=== PATIENT | female | born 1965 | race Caucasian/White ===

== ENCOUNTER 2016-09-14 16:12 | Inpatient (IN) | payer OTHER ==
[2016-09-14] MEDS ORDERED: SODIUM CHLORIDE 0.9% 1,000 ML IV STA (16:21)
[2016-09-14] MEDS ORDERED: KETOROLAC 30 MG/ML 1 ML VIAL IVP STA (16:21)
[2016-09-14] MEDS ORDERED: ONDANSETRON 4 MG/2 ML VIAL IVP STA (16:21)
[2016-09-14] MEDS ORDERED: ACETAMINOPHEN TAB 500 MG TAB PO STA (16:22)
[2016-09-14] MEDS ORDERED: HYDROmorphone 1 MG/ML 1 ML SYRINGE IVP STA ×2 (16:24→19:56)
[2016-09-14] MEDS ORDERED: LEVOFLOXACIN 750MG-D5W PMX 750 MG in DEXTROSE/WATER 1 150ML.BAG IVPB STA (16:24)
--- NOTE | 2016-09-14 16:31 | ED ---
Abdominal Pain HPI - General Chief Complaint: Abdominal Pain Stated Complaint: Kidney Stone Time Seen by Provider: 09/14/16 16:21 Source: patient, family, RN notes reviewed, old records reviewed Mode of arrival: ambulatory Limitations: no limitations - History of Present Illness Initial Comments: This is a 51-year-old female presenting to the emergency department from her primary care office with chief complaint of left flank pain. Patient reports that she has a history of kidney stones. She reports that this pain has been going on for the past few months but became much worse over the past 3 days. She reports that it is not stopping. She states she's had a low-grade fever. She is not had any vomiting. She states that she feels nauseated. She reports that the pain radiates her left flank to her left left abdomen. She states her pains a 10 out of 10 and is writhing around the room. Patient states she is never seen a urologist here. Had no recent CAT scans her antibiotics. Patient denies any blood in her urine. She does report that her urine has been cloudy. Patient reports that she has not taken anything for pain.Patient denies any recent shortness of breath, chest pain, vomiting, numbness or tingling, dysuria or hematuria, constipation or diarrhea, headaches or visual changes, or any other current symptoms - Related Data Home Medications Medication Instructions Recorded Confirmed Atorvastatin [Lipitor] 20 mg PO HS 09/14/16 09/14/16 Cyclobenzaprine [Flexeril] 10 mg PO HS 09/14/16 09/14/16 Enalapril [Vasotec] 2.5 mg PO DAILY 09/14/16 09/14/16 Gabapentin [Neurontin] 100 mg PO HS 09/14/16 09/14/16 HYDROcodone/APAP 10-325MG [[place] 1 tab PO HS PRN 09/14/16 09/14/16 10-325] Magnesium Malate 2,500 mg PO DAILY 09/14/16 09/14/16 SUMAtriptan SUCCINATE [Imitrex] 25 mg PO BID PRN 09/14/16 09/14/16 Venlafaxine HCl [Effexor XR] 75 mg PO DAILY 09/14/16 09/14/16 metFORMIN HCL 1,000 mg PO BID 09/14/16 09/14/16 predniSONE 5 mg PO DAILY PRN 09/14/16 09/14/16 traMADol HCL [Ultram] 50 mg PO TID PRN 09/14/16 09/14/16 Allergies Allergy/AdvReac Type Severity Reaction Status Date / Time adalimumab [From Humira] Allergy Swelling Verified 09/14/16 16:26 Review of Systems ROS Statement: Those systems with pertinent positive or pertinent negative responses have been documented in the HPI. ROS Other: All systems not noted in ROS Statement are negative. Past Medical History Past Medical History: Diabetes Mellitus Additional Past Medical History / Comment(s): kidney stones History of Any Multi-Drug Resistant Organisms: None Reported Past Surgical History: Section, Hysterectomy Additional Past Surgical History / Comment(s): knee Past Psychological History: Depression Smoking Status: Current every day smoker Past Alcohol Use History: None Reported Past Drug Use History: None Reported General Exam - General Exam Comments Initial Comments: This is an ill-appearing 51-year-old female. No distress. Limitations: no limitations General appearance: alert, in no apparent distress Head exam: Present: atraumatic, normocephalic, normal inspection Eye exam: Present: normal appearance, PERRL, EOMI. Absent: scleral icterus, conjunctival injection, periorbital swelling ENT exam: Present: normal exam, mucous membranes moist Neck exam: Present: normal inspection. Absent: tenderness, meningismus, lymphadenopathy Respiratory exam: Present: normal lung sounds bilaterally. Absent: respiratory distress, wheezes, rales, rhonchi, stridor Cardiovascular Exam: Present: regular rate, normal rhythm, normal heart sounds. Absent: systolic murmur, diastolic murmur, rubs, gallop, clicks GI/Abdominal exam: Present: soft, tenderness (Left upper quadrant tenderness.), normal bowel sounds. Absent: distended, guarding, rebound, rigid Extremities exam: Present: normal inspection, full ROM, normal capillary refill. Absent: tenderness, pedal edema, joint swelling, calf tenderness Back exam: Present: normal inspection, CVA tenderness (L) Neurological exam: Present: alert, oriented X3, CN II-XII intact Psychiatric exam: Present: normal affect, normal mood Skin exam: Present: warm, dry, intact, normal color. Absent: rash Course Vital Signs 09/14/16 09/14/16 16:16 18:19 Temperature 102.5 F H 100.1 F H Pulse Rate 131 H 112 H Respiratory 18 18 Rate Blood Pressure 127/82 94/52 O2 Sat by Pulse 99 93 L Oximetry - Reevaluation(s) Reevaluation #1: 09/14/16 17:31 Patient is reevaluated at this time and is resting comfortably. Discussed with patient that we'll be doing a CAT scan. Patient agrees. Medical Decision Making - Medical Decision Making This is a pleasant 51-year-old female chief complaint of 2 days of left flank pain. She also complains of abdominal distention 9 be able to have a bowel movement. She reports that she was diagnosed with diabetes.longer was trying to change her diet. Patient presents the emergency department with a fever for 102. Tachycardia 131 bpm. Patient is writhing around the room on initial examination. Patient given IV fluids and lab work obtained. Patient has an elevated white count of 23,000. Urinalysis is positive for urinary tract infection, with significant amount of white blood cells. is been started on IV Levaquin. Lactic acid is negative at 1.3. Blood cultures also obtained. Patient CT abdomen and pelvis does reveal a left ureteral stone measuring 7 mm. Patient states that she has not seen a urologist in this area. Discussed case with Dr. Keen. Patient will be admitted for pyelonephritis and sepsis, with a left ureteral stone. At this time we contacted urology. Dr. Mullen will place a stent to remove the stone at 9:30 this evening. Patient will be admitted to unit on IV fluids. - Lab Data Result diagrams: 09/14/16 16:54 09/14/16 16:54 Lab Results 09/14/16 09/14/16 09/14/16 Range/Units 16:54 16:54 16:54 WBC 22.3 H (3.8-10.6) k/uL RBC 5.15 (3.80-5.40) m/uL Hgb 14.8 (11.4-16.0) gm/dL Hct 45.6 (34.0-46.0) % MCV 88.5 (80.0-100.0) fL MCH 28.8 (25.0-35.0) pg MCHC 32.5 (31.0-37.0) g/dL RDW 13.4 (11.5-15.5) % Plt Count 261 (150-450) k/uL Neutrophils % 83 % Lymphocytes % 10 % Monocytes % 5 % Eosinophils % 0 % Basophils % 0 % Neutrophils # 18.6 H (1.3-7.7) k/uL Lymphocytes # 2.3 (1.0-4.8) k/uL Monocytes # 1.0 (0-1.0) k/uL Eosinophils # 0.0 (0-0.7) k/uL Basophils # 0.1 (0-0.2) k/uL Sodium 137 (137-145) mmol/L Potassium 4.8 (3.5-5.1) mmol/L Chloride 103 (98-107) mmol/L Carbon Dioxide 23 (22-30) mmol/L Anion Gap 11 mmol/L BUN 15 (7-17) mg/dL Creatinine 0.78 (0.52-1.04) mg/dL Est GFR (MDRD) Af Amer >60 (>60 ml/min/1.73 sqM) Est GFR (MDRD) Non-Af >60 (>60 ml/min/1.73 sqM) Glucose 121 H (74-99) mg/dL Plasma Lactic Acid [place]mond 1.8 (0.7-2.0) mmol/L Calcium 10.2 (8.4-10.2) mg/dL Total Bilirubin 0.9 (0.2-1.3) mg/dL AST 20 (14-36) U/L ALT 26 (9-52) U/L Alkaline Phosphatase 104 (38-126) U/L Total Protein 7.8 (6.3-8.2) g/dL Albumin 4.4 (3.5-5.0) g/dL Amylase 32 (30-110) U/L Lipase 73 (23-300) U/L Urine Color Urine Appearance (Clear) Urine pH (5.0-8.0) Ur Specific [place] (1.001-1.035) Urine Protein (Negative) Urine Glucose (UA) (Negative) Urine Ketones (Negative) Urine Blood (Negative) Urine Nitrite (Negative) Urine Bilirubin (Negative) Urine Urobilinogen (<2.0) mg/dL Ur Leukocyte Esterase (Negative) Urine RBC (0-5) /hpf Urine WBC (0-5) /hpf Ur Squamous Epith Cells (0-4) /hpf Urine Bacteria (None) /hpf Urine Mucus (None) /hpf Urine Yeast (Budding) (None) /hpf 09/14/16 Range/Units 17:10 WBC (3.8-10.6) k/uL RBC (3.80-5.40) m/uL Hgb (11.4-16.0) gm/dL Hct (34.0-46.0) % MCV (80.0-100.0) fL MCH (25.0-35.0) pg MCHC (31.0-37.0) g/dL RDW (11.5-15.5) % Plt Count (150-450) k/uL Neutrophils % % Lymphocytes % % Monocytes % % Eosinophils % % Basophils % % Neutrophils # (1.3-7.7) k/uL Lymphocytes # (1.0-4.8) k/uL Monocytes # (0-1.0) k/uL Eosinophils # (0-0.7) k/uL Basophils # (0-0.2) k/uL Sodium (137-145) mmol/L Potassium (3.5-5.1) mmol/L Chloride (98-107) mmol/L Carbon Dioxide (22-30) mmol/L Anion Gap mmol/L BUN (7-17) mg/dL Creatinine (0.52-1.04) mg/dL Est GFR (MDRD) Af Amer (>60 ml/min/1.73 sqM) Est GFR (MDRD) Non-Af (>60 ml/min/1.73 sqM) Glucose (74-99) mg/dL Plasma Lactic Acid Edmond (0.7-2.0) mmol/L Calcium (8.4-10.2) mg/dL Total Bilirubin (0.2-1.3) mg/dL AST (14-36) U/L ALT (9-52) U/L Alkaline Phosphatase (38-126) U/L Total Protein (6.3-8.2) g/dL Albumin (3.5-5.0) g/dL Amylase (30-110) U/L Lipase (23-300) U/L Urine Color Yellow Urine Appearance Cloudy H (Clear) Urine pH 6.5 (5.0-8.0) Ur Specific [place] 1.011 (1.001-1.035) Urine Protein 1+ H (Negative) Urine Glucose (UA) Trace H (Negative) Urine Ketones Negative (Negative) Urine Blood Small H (Negative) Urine Nitrite Negative (Negative) Urine Bilirubin Negative (Negative) Urine Urobilinogen <2.0 (<2.0) mg/dL Ur Leukocyte Esterase Large H (Negative) Urine RBC 4 (0-5) /hpf Urine WBC 101 H (0-5) /hpf Ur Squamous Epith Cells 1 (0-4) /hpf Urine Bacteria Occasional H (None) /hpf Urine Mucus Rare H (None) /hpf Urine Yeast (Budding) Occasional H (None) /hpf - Radiology Data Radiology results: report reviewed Abdominal x-rays shows correlate for fecal stasis. Follow-up is indicated. CT abdomen and pelvis shows mild left ureteral calculus with obstruction postop changes. After her stone measures between 6 and 7 mm. Bilateral nonobstructive nephrolithiasis. Disposition Clinical Impression: Left ureteral stone, Pyelonephritis, Sepsis Disposition: ADMITTED IP TO THIS HOSP Condition: Stable Referrals: Aruna Solorzano MD [Primary Care Provider] - 1-2 days Time of Disposition: 18:11
[2016-09-14] MEDS: SODIUM CHLORIDE 0.9% 1,000 ML IV SCH ×2 (16:57→18:56)
[2016-09-14 17:12] LABS: Basophils # (A) 0.1 k/uL (0-0.2); Basophils % (A) 0 %; CH 29.4; CHCM 33.4; Eosinophils % (A) 0 %; HCT 45.6 % (34.0-46.0); HDW 2.74; HGB 14.8 gm/dL (11.4-16.0); Luc # (Auto) 0.29; Luc % (Auto) 1; Lymphocytes # (A) 2.3 k/uL (1.0-4.8); Lymphocytes % (A) 10 %; MCH 28.8 pg (25.0-35.0); MCHC 32.5 g/dL (31.0-37.0); MCV 88.5 fL (80.0-100.0); Mean Platelet Volume 7.9; Monocytes % (A) 5 %; Neutrophils # (A) 18.6 k/uL (1.3-7.7); Neutrophils % (A) 83 %; RBC 5.15 m/uL (3.80-5.40); RDW 13.4 % (11.5-15.5); WBC 22.3 k/uL (3.8-10.6); WBC (Perox) 22.08
[2016-09-14 17:22] LABS: ALT 26 U/L (9-52); AST 20 U/L (14-36); Alkaline Phosphatase 104 U/L (38-126); Amylase 32 U/L (30-110); Anion Gap 11 mmol/L; Blood Urea Nitrogen 15 mg/dL (7-17); Calcium 10.2 mg/dL (8.4-10.2); Carbon Dioxide 23 mmol/L (22-30); Chloride 103 mmol/L (98-107); Glucose 121 mg/dL (74-99); Non-African American GFR(MDRD) >60 (>60 ml/min/1.73 sqM); Potassium 4.8 mmol/L (3.5-5.1); Sodium 137 mmol/L (137-145); Total Bilirubin 0.9 mg/dL (0.2-1.3); Total Protein 7.8 g/dL (6.3-8.2)
--- NOTE | 2016-09-14 17:22 | XR ---
Abdomen HISTORY: Left flank pain, nausea and vomiting Frontal view of the abdomen submitted on 2 images Lung bases are clear. Patient is likely rotated or there may be a scoliosis. There is no bowel obstru ction or pneumoperitoneum. Bowel gas may obscure underlying detail, there is retained fecal debris. IMPRESSION: Correlate for fecal stasis, follow-up as indicated.
[2016-09-14 17:24] LABS: Appearance,Urine Cloudy (Clear); Bacteria,Urine Occasional /hpf; Bilirubin,Urine Negative (Negative); Glucose,Urine (UA) Trace (Negative); Ketones,Urine Negative (Negative); Leukocyte Esterase,Urine Large (Negative); Mucus,Urine Rare /hpf; Nitrite,Urine Negative (Negative); PH, Urine 6.5 (5.0-8.0); Particle Count 2738; Protein,Urine 1+ (Negative); RBC,Urine 4 /hpf (0-5); Specific Gravity,Urine 1.011 (1.001-1.035); Squamous Epithelial Cell,Urine 1 /hpf (0-4); UA Billing (MACRO vs. MICRO) MICRO; Urobilinogen,Urine <2.0 mg/dL (<2.0); WBC,Urine 101 /hpf (0-5)
--- NOTE | 2016-09-14 18:15 | CT ---
EXAMINATION TYPE: CT abdomen pelvis wo con DATE OF EXAM: 09/14/2016 5:48 PM COMPARISON: Plain film same date HISTORY: Patient complains of left flank pain with a history of prior renal stones. CT DLP: 1013 mGycm Automated exposure control for dose reduction was used. TECHNIQUE: Helical acquisition of images from the lung bases through the pelvis. FINDINGS: LUNG BASES: No significant abnormality is appreciated. AORTA: No significant abnormality is appreciated. LIVER/GB: The liver shows low attenuation possibly due to fatty infiltration. Gallbladder is normal PANCREAS: Probable duodenal diverticulum present at the level of the pancreatic head, pancreas is unr emarkable SPLEEN: No significant abnormality is seen. ADRENALS: No significant abnormality is seen. KIDNEYS: Left kidney shows hydronephrosis, there is perinephric stranding. Nonobstructive renal calcu joseph at the midpole of the left kidney measures approximately 1 to 2 mm. Nonobstructive calculus at th e lower pole of the right kidney measures 2 mm. There is left hydroureter. MID ureteral calculus is p resent measuring approximately 6 to 7 mm on the left REPRODUCTIVE ORGANS: Uterus is not seen. Ovaries are unremarkable URINARY BLADDER: Contracted BOWEL: No bowel obstruction. Calcified diverticula are noted in the sigmoid and descending colon reg ion. FREE AIR: No Free Air is visible. ASCITES: None visible. PELVIC ADENOPATHY: None visualized. RETROPERITONEAL ADENOPATHY: No Retroperitoneal Adenopathy visible. OSSEOUS STRUCTURES: No significant abnormality is seen. Small anterior abdominal wall hernia in the left lower quadrant shows a wide mouth measuring 2.8 cm. IMPRESSION: MID LEFT URETERAL CALCULUS WITH OBSTRUCTION. POSTOP CHANGES AND ADDITIONAL FINDINGS ABOVE. BILATERAL NONOBSTRUCTIVE NEPHROLITHIASIS.
[2016-09-14] MEDS ORDERED: IBUPROFEN 600 MG TAB PO STA (18:26)
[2016-09-14] MEDS ORDERED: SODIUM CHLORIDE 0.9% 500 ML IV ONE (18:28)
[2016-09-14] MEDS ORDERED: BISACODYL 5 MG TABLET.DR PO PRN (18:33)
[2016-09-14] MEDS ORDERED: ONDANSETRON 4 MG/2 ML VIAL IVP PRN (18:33)
[2016-09-14] MEDS ORDERED: NALOXONE 0.4 MG/ML 1 ML VIAL IV PRN (18:33)
[2016-09-14] MEDS ORDERED: SUMAtriptan SUCCINATE 25 MG TAB PO PRN (18:49)
[2016-09-14] MEDS ORDERED: LACTATED RINGERS 1,000 ML IV ONE ×2 (21:10)
[2016-09-14] MEDS ORDERED: HYDROCORTISONE SUCCINATE 100 MG/2 ML VIAL IVP ONE (21:15)
[2016-09-14] MEDS ORDERED: PROPOFOL 10 MG/ML 20 ML VIAL IV ONE (21:48)
[2016-09-14] MEDS ORDERED: KETAMINE 10 MG/ML 20 ML VIAL ONE (21:48)
[2016-09-14] MEDS ORDERED: MIDAZOLAM 2 MG/2 ML VIAL ONE (21:48)
[2016-09-14] MEDS ORDERED: LIDOCAINE 1% INJ 10MG/ML (20 ML MDV) ONE (21:48)
[2016-09-14] MEDS ORDERED: HYDROmorphone (PF) 1 MG/ML ONE (21:48)
[2016-09-14] MEDS ORDERED: ONDANSETRON 4 MG/2 ML VIAL ONE (21:48)
--- NOTE | 2016-09-14 21:51 | P.GSHP ---
History of Present Illness H&P Date: 09/14/16 Patient is a 51-year-old female who for 2 months as had problems with left flank pain. She has a history of stones and was fired to have a left ureteral stone. Over the last 48 hours she developed high fever and chills. She presented the emergency room tonight had a temperature of over 102. She is identified and a white count of 22,000. A computed tomography scan showed a 6 mm left mid to proximal ureteral stone with hydronephrosis. Her urine was infected. Her blood pressure is low at 98. With this in mind she has a urinary tract infection with sepsis, pyonephrosis. She is admitted to the hospital for IV fluids and IV antibiotics and [facility] - Review of Systems Comment: Noncontributory Past Medical History Past Medical History: Diabetes Mellitus Additional Past Medical History / Comment(s): kidney stones History of Any Multi-Drug Resistant Organisms: None Reported Past Surgical History: Section, Hysterectomy Additional Past Surgical History / Comment(s): knee Past Psychological History: Depression Smoking Status: Current every day smoker Past Alcohol Use History: None Reported Past Drug Use History: None Reported Medications and Allergies Home Medications Medication Instructions Recorded Confirmed Type Atorvastatin [Lipitor] 20 mg PO HS 09/14/16 09/14/16 History Cyclobenzaprine [Flexeril] 10 mg PO HS 09/14/16 09/14/16 History Enalapril [Vasotec] 2.5 mg PO DAILY 09/14/16 09/14/16 History Gabapentin [Neurontin] 100 mg PO HS 09/14/16 09/14/16 History HYDROcodone/APAP 10-325MG [[place] 1 tab PO HS PRN 09/14/16 09/14/16 History 10-325] Magnesium Malate 2,500 mg PO DAILY 09/14/16 09/14/16 History SUMAtriptan SUCCINATE [Imitrex] 25 mg PO BID PRN 09/14/16 09/14/16 History Venlafaxine HCl [Effexor XR] 75 mg PO DAILY 09/14/16 09/14/16 History metFORMIN HCL 1,000 mg PO BID 09/14/16 09/14/16 History predniSONE 5 mg PO DAILY PRN 09/14/16 09/14/16 History traMADol HCL [Ultram] 50 mg PO TID PRN 09/14/16 09/14/16 History Allergies Allergy/AdvReac Type Severity Reaction Status Date / Time adalimumab [From Humira] Allergy Swelling Verified 09/14/16 16:26 Surgical - Exam Vital Signs Temp Pulse Resp BP Pulse Ox 102.5 F H 131 H 18 127/82 99 09/14/16 16:16 09/14/16 16:16 09/14/16 16:16 09/14/16 16:16 09/14/16 16:16 Results - Labs 09/14/16 16:54 09/14/16 16:54 Assessment and Plan Plan: Imp; Left ureteral calculous with obstruction. Uti w sepsis. Pyonephrosis. Plan: cysto with p[lacement of double j catheter left.
[2016-09-14] MEDS ORDERED: HYDROcodone/APAP 10-325MG 1 EACH TAB PO PRN (22:12)
[2016-09-14] MEDS ORDERED: predniSONE 5 MG TAB PO PRN (22:12)
--- NOTE | 2016-09-14 22:16 | P.OP ---
Date of Procedure: 09/14/16 Preoperative Diagnosis: Left ureteral calculus, urinary tract infection with sepsis, pyonephrosis Postoperative Diagnosis: Same Procedure(s) Performed: Cystoscopy, placement of 6 x 24 double-J catheter left Surgeon: Donnell Cortes Estimated Blood Loss (ml): 0 Pathology: none sent Condition: stable Disposition: PACU Indications for Procedure: The patient is a 51-year-old female with a midureteral calculus for several weeks and a recent urinary tract infection with sepsis with a high-grade fever or tachycardia low blood pressure which she comes for emergent placement of double-J catheter to drain the infected urine Description of Procedure: Patient is brought to the operating suite and given IV sedation. She's placed lithotomy position with a sterile prep and drape. Fluoroscopy shows a probable stone overlying the SI joint on the left side. Cystoscopies performed identifying cystitis. The left ureteral orifice is identified and intubated with an 035 wire. It passes up to the stone or there is a mild obstruction but then the wire passes by the stone up into the renal pelvis. Over the wires passed a 6 x 24 double-J catheter that coils in the renal pelvis and the bladder there is a hydronephrotic flow. The bladder strain the cystoscope to remove the patient's awake and returned recovery room good condition. She'll be watched in the hospital overnight with IV fluids and IV antibiotics oral antibiotics are identified she'll be placed on that. She'll remain on oral antibiotics until her stone and stent removed in 10 days to 2 weeks.
[2016-09-14 22:37] LABS: Glucose,Whole Blood 135 mg/dL (75-99)
[2016-09-14] MEDS: HYDROmorphone 1 MG/ML 1 ML SYRINGE IV PRN (23:59)
[2016-09-15 00:14] VITALS: BMI 31.8
[2016-09-15] MEDS: metFORMIN 500 MG TAB PO SCH ×2 (00:20→08:32)
[2016-09-15] MEDS: GABAPENTIN 100 MG CAP PO SCH ×2 (01:42→20:06)
[2016-09-15] MEDS: CYCLOBENZAPRINE 10 MG TAB PO SCH ×2 (01:42→20:04)
[2016-09-15] MEDS: ATORVASTATIN 20 MG TAB PO SCH ×2 (01:42→20:04)
[2016-09-15 01:48] VITALS: RESP 16
[2016-09-15] MEDS: HYDROmorphone 1 MG/ML 1 ML SYRINGE IV PRN ×5 (02:59→18:13)
[2016-09-15] MEDS: SODIUM CHLORIDE 0.9% 1,000 ML IV SCH ×2 (05:59→13:36)
--- NOTE | 2016-09-15 08:46 | FL ---
Fluoroscopy HISTORY: Pain 13 seconds fluoroscopy time supplied to the referring clinician. 1 intraoperative C-arm image docume nts the procedure. See dictated report from urology.
[2016-09-15] MEDS: PANTOPRAZOLE 40 MG/10 ML VIAL IV SCH (08:47)
[2016-09-15] MEDS: VENLAFAXINE HCL ER 75 MG CAP PO SCH (08:47)
[2016-09-15] MEDS ORDERED: LISINOPRIL 5 MG TAB PO SCH (09:00)
--- NOTE | 2016-09-15 11:41 | P.PN ---
Subjective The patient is in the hospital with urinary tract infection with sepsis and obstructing ureteral stone with pyelonephrosis. She underwent an emergent placement of a double-J catheter on the left side last night. She is feeling much better. Her temperature is down. She is still a little bit hypotensive. She'll continue with IV fluids and IV antibiotics until the cultures back. Once the cultures back oral antibiotics can be instituted and she can be discharged home from a urologic standpoint. She will need a cystoscopy and stent removal as well as stone removal in approximately 10 days to 2 weeks Objective - Vital Signs Vital signs: Vital Signs Temp 97.5 F L 09/15/16 07:00 Pulse 62 09/15/16 07:00 Resp 16 09/15/16 07:00 BP 93/53 09/15/16 07:00 Pulse Ox 98 09/15/16 07:00 Intake & Output 09/14/16 09/15/16 09/15/16 18:59 06:59 18:59 Intake Total 2240 Output Total 0 Balance 2240 Weight 81.647 kg Intake: IV 500 Intake, IV Titration 1200 Amount Sodium Chloride 0.9% 1, 1200 000 ml @ 150 mls/hr IV . Q6H40M [facility] Rx#:[id number] Oral 540 Output: Estimated Blood Loss 0 Other: Voiding Method Toilet # Voids 2 - Labs CBC & Chem 7: 09/14/16 16:54 09/14/16 16:54 Labs: Abnormal Lab Results - Last 24 Hours (Table) 09/14/16 Range/Units 22:33 POC Glucose (mg/dL) 135 H (75-99) mg/dL
[2016-09-15] MEDS ORDERED: SODIUM CHLORIDE 0.45% 1,000 ML IV SCH (12:30)
[2016-09-15] MEDS: KETOROLAC 30 MG/ML 1 ML VIAL IVP PRN ×2 (13:28→22:11)
[2016-09-15] MEDS: MAGNESIUM OXIDE 400 MG TAB PO SCH (13:35)
[2016-09-15] MEDS: NICOTINE 21MG/24HR PATCH TRANSDERM SCH (13:36)
--- NOTE | 2016-09-15 15:47 | HP ---
DATE OF ADMISSION: The patient is a pleasant 51-year-old. Patient has left flank pain, has been going on for 2 months on and off and patient was found to have left ureteral stone. Patient had J-tube placement yesterday. The patient came in septic with fever, leukocytosis of 22,000. Urology was consulted and J tube was placed. The patient has hydronephrosis as well as and her blood pressure is low because of which antihypertensives are being discontinued. Patient will be started on IV fluids at 125 mL normal saline, half normal saline will be discontinued. REVIEW OF SYSTEMS: CONSTITUTIONAL: No fever, no malaise, no fatigue. HEENT: No recent visual problems or hearing problems. Denied any sore throat. CARDIOVASCULAR: No chest pain, orthopnea, PND, no palpitations, no syncope. PULMONARY: No shortness of breath, no cough, no hemoptysis. GASTROINTESTINAL: No diarrhea, no nausea, no vomiting, no abdominal pain. Normoactive bowel sounds. NEUROLOGICAL: No headaches, no weakness, no numbness. HEMATOLOGICAL: Denies any bleeding or petechiae. GENITOURINARY: As described in HPI. MUSCULOSKELETAL/RHEUMATOLOGICAL: Denies any joint pain, swelling, or any muscle pain. ENDOCRINE: Denies any polyuria or polydipsia. The rest of the 14 point review of systems is negative. Past medical history includes diabetes mellitus, kidney stones in the past, section, hysterectomy, depression. SOCIAL HISTORY: The patient does smoke. Denied any alcohol abuse or any drug abuse. FAMILY HISTORY: Significant for cancer. PHYSICAL EXAMINATION: VITAL SIGNS: Temperature 97.5, pulse is 62, respiratory rate of 16, blood pressure is 93/53, saturating at 98% on room air. GENERAL: The patient is alert and oriented x3, not in any acute distress. Well developed, well nourished. HEENT: Pupils are round and equally reacting to light. EOMI. No scleral icterus. No conjunctival pallor. Normocephalic, atraumatic. No pharyngeal erythema. No thyromegaly. CARDIOVASCULAR: S1 and S2 present. No murmurs, rubs, or gallops. PULMONARY: Chest is clear to auscultation, no wheezing or crackles. ABDOMEN: Patient left flank tenderness is significantly improved, but still has some pain. MUSCULOSKELETAL: No joint swelling or deformity. EXTREMITIES: No cyanosis, clubbing, or pedal edema. NEUROLOGICAL: Gross neurological examination did not reveal any focal deficits. SKIN: No rashes. LABORATORY DATA: CBC, CMP are abnormal for highly elevated WBC count of 22,300. Blood glucose is 121. ASSESSMENT AND PLAN: 1. Severe sepsis secondary to urinary tract infection and pyelonephritis secondary to urinary tract infection. Patient has nephrolithiasis on the left side for which patient had a J-tube placement. 2. Hypotension secondary to severe sepsis and patient will be started on 125 mL of normal saline. Antihypertensives will be discontinued. 3. Hyperlipidemia. 4. Diabetes mellitus. Metformin will be discontinued with concerns of lactic acidosis and sepsis and patient was started on sliding scale insulin. 5. Peripheral neuropathy secondary to diabetes mellitus. 6. For depression, will go ahead and continue venlafaxine. 7. Nephrolithiasis management as per Urology. Since patient has severe sepsis secondary to urinary tract infection, levofloxacin does not have a reliable coverage and 30% resistance in the community. I will go ahead discontinue it and patient will be started on 2 grams of Rocephin. Patient has large leukocyte esterase and WBC in the urine and occasional budding yeast.
[2016-09-15] MEDS ORDERED: cefTRIAXone 2,000 MG in SODIUM CHLORIDE 0.9% 100 ML IVPB SCH (16:00)
[2016-09-15 17:14] LABS: Glucose,Whole Blood 133 mg/dL (75-99)
[2016-09-15] MEDS ORDERED: LEVOFLOXACIN 750MG-D5W PMX 750 MG in DEXTROSE/WATER 1 150ML.BAG IVPB SCH (18:00)
[2016-09-15] MEDS: INSULIN LISPRO (humaLOG) 300 UNIT/3 ML VIAL SQ SCH ×2 (18:08→22:07)
[2016-09-15] MEDS: traMADol 50 MG TAB PO PRN (20:03)
[2016-09-15 21:49] LABS: Glucose,Whole Blood 177 mg/dL (75-99)
[2016-09-16 07:05] LABS: Glucose,Whole Blood 97 mg/dL (75-99)
[2016-09-16] MEDS: INSULIN LISPRO (humaLOG) 300 UNIT/3 ML VIAL SQ SCH ×2 (08:14→13:34)
[2016-09-16] MEDS: NICOTINE 21MG/24HR PATCH TRANSDERM SCH (08:15)
[2016-09-16] MEDS: SODIUM CHLORIDE 0.9% 1,000 ML IV SCH ×2 (08:15→08:16)
[2016-09-16] MEDS: traMADol 50 MG TAB PO PRN (08:15)
[2016-09-16] MEDS: VENLAFAXINE HCL ER 75 MG CAP PO SCH (08:16)
[2016-09-16] MEDS: PANTOPRAZOLE 40 MG/10 ML VIAL IV SCH (08:16)
[2016-09-16 08:35] LABS: CH 29.1; CHCM 32.5; HCT 34.6 % (34.0-46.0); HDW 2.96; MCHC 33.3 g/dL (31.0-37.0); Mean Platelet Volume 8.7; RBC 3.85 m/uL (3.80-5.40); RDW 13.3 % (11.5-15.5); WBC 17.4 k/uL (3.8-10.6)
[2016-09-16 08:37] LABS: HGB 11.5 gm/dL (11.4-16.0)
[2016-09-16 09:17] LABS: Anion Gap 9 mmol/L; Blood Urea Nitrogen 18 mg/dL (7-17); Calcium 9.1 mg/dL (8.4-10.2); Carbon Dioxide 18 mmol/L (22-30); Chloride 119 mmol/L (98-107); Glucose 197 mg/dL (74-99); Non-African American GFR(MDRD) >60 (>60 ml/min/1.73 sqM); Potassium 4.6 mmol/L (3.5-5.1); Sodium 146 mmol/L (137-145)
[2016-09-16] MEDS ORDERED: LACTATED RINGERS 1,000 ML IV SCH (11:00)
[2016-09-16 11:28] LABS: Glucose,Whole Blood 97 mg/dL (75-99)
[2016-09-16 12:24] LABS: Hemoglobin A1C 6.2 % (4.2-6.1)
--- NOTE | 2016-09-16 13:18 | P.PN ---
Subjective The patient contineuws to feel better. HEr wc were 17 yesterday. HEr vss Her uo is good The culture is pending. From a gu standpoint she can go howm but the culture will have to be followed. I want to see her at the end of next week. I will set her up for ureteroscopy and laser litho in 10 days Objective - Vital Signs Vital signs: Vital Signs Temp 97.9 F 09/15/16 23:00 Pulse 68 09/15/16 23:00 Resp 16 09/15/16 23:00 BP 93/55 09/15/16 23:00 Pulse Ox 98 09/15/16 23:00 Intake & Output 09/15/16 09/16/16 09/16/16 18:59 06:59 18:59 Intake Total 400 180 Output Total 850 800 Balance -850 -400 180 Intake: Oral 400 180 Output: Urine 850 800 Other: Voiding Method Toilet # Voids 1 - Labs CBC & Chem 7: 09/16/16 08:15 09/16/16 08:15 Labs: Abnormal Lab Results - Last 24 Hours (Table) 09/15/16 09/15/16 09/16/16 Range/Units 17:10 21:46 08:15 WBC 17.4 H (3.8-10.6) k/uL Sodium (137-145) mmol/L Chloride (98-107) mmol/L Carbon Dioxide (22-30) mmol/L BUN (7-17) mg/dL Glucose (74-99) mg/dL POC Glucose (mg/dL) 133 H 177 H (75-99) mg/dL 09/16/16 Range/Units 08:15 WBC (3.8-10.6) k/uL Sodium 146 H (137-145) mmol/L Chloride 119 H (98-107) mmol/L Carbon Dioxide 18 L (22-30) mmol/L BUN 18 H (7-17) mg/dL Glucose 197 H (74-99) mg/dL POC Glucose (mg/dL) (75-99) mg/dL
[2016-09-16] MEDS: MAGNESIUM OXIDE 400 MG TAB PO SCH (13:35)
[2016-09-16 13:54] VITALS: BP 125/58; PULSE 99; TEMP 96.2
--- NOTE | 2016-09-16 14:51 | DS ---
DATE OF ADMISSION: 09/14/2016 DATE OF DISCHARGE: Patient is a 51-year-old came in with left flank pain, found to have left ureteral stone and severe sepsis secondary to pyelonephritis and urinary tract infection. Patient is clinically doing well, wanted to be discharged. Ideally going to keep her until we get the urine culture sensitivities. As patient is insisting on discharge. Patient's symptoms significantly drastically improved to Rocephin. I will discharge her on Ceftriaxone, although cephalosporin, and quinolones are the treatment of choice for UTI considering that the severity of infection and significant resistance to quinolones lately, I chose Ceftin and patient will be discharged on Ceftin twice a day and I will follow the cultures and if the cultures come back positive and if the organism is not sensitive to Ceftin, then will change antibiotics. Patient was seen and examined on the day of discharge. Vitals are stable. PHYSICAL EXAMINATION: GENERAL: The patient is alert and oriented x3, not in any acute distress. Well developed, well nourished. HEENT: Pupils are round and equally reacting to light. EOMI. No scleral icterus. No conjunctival pallor. Normocephalic, atraumatic. No pharyngeal erythema. No thyromegaly. CARDIOVASCULAR: S1 and S2 present. No murmurs, rubs, or gallops. PULMONARY: Chest is clear to auscultation, no wheezing or crackles. ABDOMEN: Soft, nontender, nondistended, normoactive bowel sounds. No palpable organomegaly. MUSCULOSKELETAL: No joint swelling or deformity. EXTREMITIES: No cyanosis, clubbing, or pedal edema. NEUROLOGICAL: Gross neurological examination did not reveal any focal deficits. SKIN: No rashes. DISCHARGE DIAGNOSES: 1. Leukocytosis, improving. 2. Severe sepsis secondary to urinary tract infection and pyelonephritis. 3. Patient has nephrolithiasis with J-tube placement. 4. Type 2 diabetes mellitus. 5. Peripheral neuropathy. 6. Depression. Patient is being discharged on 10 days of Ceftin, follow with Dr. Aruna Solorzano in 3 to 7 days; Dr. Sebas Jacobo in one week. Urine cultures will be followed. Spent greater than 35 minutes in total discharge process. DISCHARGE DIET: Diabetic ADA 1800 calorie diet. Lisinopril will be discontinued although can be restarted down the line as it has nephroprotective property because of diabetes mellitus, because of hypotension issues now I am discontinuing that medication.
== END 2016-09-16 15:34 | disposition home or self-care (01) | DRG 854 ==
LOC: EC 16:12 → 3SUR 18:20
PROVIDERS: ADMIT Hospitalist; ATTEND Hospitalist
PROC: 0T778ZZ Dilation of Left Ureter, Via Natural or Artificial Opening Endoscopic (ICD-10-PCS; principal; 2016-09-14 21:30)
DX: A41.9 Sepsis, unspecified organism (principal); N13.6 Pyonephrosis; E11.42 Type 2 diabetes mellitus with diabetic polyneuropathy; I95.9 Hypotension, unspecified; N39.0 Urinary tract infection, site not specified; R65.20 Severe sepsis without septic shock; R14.0 Abdominal distension (gaseous); R11.0 Nausea; F32.9 Major depressive disorder, single episode, unspecified; D72.829 Elevated white blood cell count, unspecified; E78.5 Hyperlipidemia, unspecified; R00.0 Tachycardia, unspecified; F17.200 Nicotine dependence, unspecified, uncomplicated; Z88.8 Allergy status to other drugs, medicaments and biological substances; Z79.84 Long term (current) use of oral hypoglycemic drugs; Z87.440 Personal history of urinary (tract) infections; Z79.891 Long term (current) use of opiate analgesic; Z79.899 Other long term (current) drug therapy; Z87.442 Personal history of urinary calculi; Z79.52 Long term (current) use of systemic steroids; Z90.710 Acquired absence of both cervix and uterus; Z80.9 Family history of malignant neoplasm, unspecified
CPT/HCPCS: 36415; 74000; 74176; 80048; 80053; 81001; 82150; 83036; 83605; 83690; 85025; 85027; 87040; 87077; 87086; 87186; 93005; 96361; 96365; 96375; 96376; 99285

== ENCOUNTER 2016-09-26 08:50 | Day surgery (SDC) | payer OTHER ==
[2016-09-24 15:24] VITALS: BMI 30.8
[~2016-09-26 08:50] MED LIST: FAMOTIDINE 20 MG/2 ML VIAL IV PRN; HYDROmorphone 1 MG/ML 1 ML SYRINGE IVP PRN; LACTATED RINGERS 1,000 ML IV SCH; LIDOCAINE 1% 20 ML VIAL (10MG/ML) FOR IV START INTRADERMA PRN; MIDAZOLAM 2 MG/2 ML VIAL IV PRN; ONDANSETRON 4 MG/2 ML VIAL IVP PRN; ceFAZolin 2 GM in SODIUM CHLORIDE 0.9% 100 ML IVPB ONE
--- NOTE | 2016-09-26 08:51 | XR ---
EXAMINATION TYPE: XR KUB DATE OF EXAM: 09/26/2016 8:45 AM COMPARISON: 09/14/2016 INDICATION: History of left-sided renal stones TECHNIQUE: Single view abdomen FINDINGS: There is a normal bowel gas pattern. Psoas margins are normal. No organomegaly is present. Double pigtail catheter is present on the left. No renal stones are adjacent. Moderate fecal retentio n is super the colon. IMPRESSION: 1. Left ureteral stent.
[2016-09-26 09:28] LABS: Glucose,Whole Blood 123 mg/dL (75-99)
[2016-09-26] MEDS ORDERED: fentaNYL (PF) 50 MCG/ML 2 ML AMP IV ONE (10:08)
[2016-09-26] MEDS ORDERED: LIDOCAINE 1% INJ 10MG/ML (20 ML MDV) ONE (10:34)
[2016-09-26] MEDS ORDERED: MIDAZOLAM 2 MG/2 ML VIAL ONE (10:34)
[2016-09-26] MEDS ORDERED: ROCURONIUM BROMIDE 10 MG/ML 10 ML VIAL IV ONE (10:34)
[2016-09-26] MEDS ORDERED: NEOSTIGMINE 1 MG/ML 10 ML VIAL ONE (10:34)
[2016-09-26] MEDS ORDERED: PROPOFOL 10 MG/ML 20 ML VIAL IV ONE (10:34)
[2016-09-26] MEDS ORDERED: SUCCINYLCHOLINE CHLORIDE 100 MG/5 ML SYR IV ONE (10:34)
[2016-09-26] MEDS ORDERED: GLYCOPYRROLATE 0.2 MG/ML 2 ML VIAL ONE (10:34)
[2016-09-26] MEDS ORDERED: fentaNYL (PF) 50 MCG/ML 2 ML AMP ONE (10:34)
--- NOTE | 2016-09-26 11:27 | P.OP ---
Date of Procedure: 09/26/16 Preoperative Diagnosis: Left ureteral stone with obstruction, urinary tract infection with sepsis status post antibiotics and stent placement. Postoperative Diagnosis: Same Procedure(s) Performed: Cystoscopy, removal double-J catheter left, left ureteroscopy with laser lithotripsy and stone basketing, replacement of 624 stent Implants: Anesthesia: NIXON Surgeon: Donnell Cortes Estimated Blood Loss (ml): 0 Pathology: other (Stone) Condition: stable Disposition: PACU Indications for Procedure: The patient is 51. Approximately 2 weeks ago she underwent cystoscopy placement of a stent and antibiotic usage for an obstructing septic stone. She comes for cystoscopy stent and stone removal today. Operative Findings: Description of Procedure: The patient is brought to the operating suite and given a general endotracheal anesthesia. Cystoscopy Foroblique lens and 22-Bruneian sheath identifies a very edematous left ureteral orifice but an otherwise normal bladder. The stent is identified and pulled the urethral meatus. An 035 wires passed up into the kidney. I remove the stent alongside the wire pass a 7-Bruneian semirigid mini ureteroscope. I'm able to see the stone but I am unable to get the laser probe on the stone. I thus removed the rigid scope and passed 53-45-Ulsobr reentry sheath up into the proximal ureter. I removed the inner sheath and passed the flexible ureteroscope through the sheath. The stone was identified and broken into tiny pieces. I then basket larger fragments with a 19 basket. Due to the edema where the stone was I will replace a stent for 48 hours. I removed the ureteroscope. Through the reentry sheath an 035 wires passed into the kidney. Over the wires passed a 6 x 24 double-J catheter that coils in the renal pelvis and in the bladder bladder strain the cystic scope was removed the patient's awake and returned recovery in good condition. She'll be discharged home upon recovery and found the office on Saturday for stent removal. The patient tolerated procedure well. Blood loss is minimal.
[2016-09-26 11:49] VITALS: TEMP 97
--- NOTE | 2016-09-26 12:25 | FL ---
Fluoroscopy INDICATION: Pain FINDINGS: Fluoroscopy time: 5 seconds. Images obtained: 1. IMPRESSIONS: 1. Documentation of fluoroscopy.
[2016-09-26] MEDS ORDERED: HYDROcodone/APAP 10-325MG 1 EACH TAB PO ONE (12:55)
[2016-09-26 12:59] VITALS: BP 111/77; PULSE 98; RESP 18
== END 2016-09-26 13:42 | disposition home or self-care (01) ==
LOC: OR 08:50
PROVIDERS: ATTEND Urology
DX: N20.1 Calculus of ureter (principal); A41.51 Sepsis due to Escherichia coli [E. coli]; E78.5 Hyperlipidemia, unspecified; I10 Essential (primary) hypertension; F17.200 Nicotine dependence, unspecified, uncomplicated; E11.9 Type 2 diabetes mellitus without complications; Z79.84 Long term (current) use of oral hypoglycemic drugs; F32.9 Major depressive disorder, single episode, unspecified; Z79.891 Long term (current) use of opiate analgesic; Z79.899 Other long term (current) drug therapy; Z88.8 Allergy status to other drugs, medicaments and biological substances
CPT/HCPCS: 84132; 82365; 74000; 52332; 52320; C2625; C1769; J2250; J2710; J0690; J2405; J2001; J3010; J0330; J2704

== ENCOUNTER → 2018-02-10 | Outpatient (CLI) | payer OTHER ==
[2018-02-10 16:26] LABS: HCT 46.4 % (34.0-46.0); HGB 14.8 gm/dL (11.4-16.0); MCH 29.4 pg (25.0-35.0); MCV 91.8 fL (80.0-100.0); Mean Platelet Volume 7.3; Platelet Count 258 k/uL (150-450); RBC 5.06 m/uL (3.80-5.40); RDW 13.8 % (11.5-15.5); WBC 13.7 k/uL (3.8-10.6)
[2018-02-10 17:40] LABS: Erythrocyte Sedimentation Rate 4 mm/hr (0-20)
[2018-02-11 04:08] LABS: Gliadin AB IgA, Unit 1.7 U/mL
== END | disposition home or self-care (01) ==
LOC: LABWHC1 15:48
PROVIDERS: ATTEND Internal Medicine Gastroenterology
DX: K52.9 Noninfective gastroenteritis and colitis, unspecified (principal)
CPT/HCPCS: 36415; 83516; 85027; 85652; 86140

== ENCOUNTER 2018-03-05 06:50 | Day surgery (SDC) | payer OTHER ==
[2018-03-03 14:58] VITALS: BMI 31.9
[~2018-03-05 06:50] MED LIST changes: -FAMOTIDINE 20 MG/2 ML VIAL IV PRN; -HYDROmorphone 1 MG/ML 1 ML SYRINGE IVP PRN; -MIDAZOLAM 2 MG/2 ML VIAL IV PRN; -ONDANSETRON 4 MG/2 ML VIAL IVP PRN; -ceFAZolin 2 GM in SODIUM CHLORIDE 0.9% 100 ML IVPB ONE
[2018-03-05 07:17] VITALS: TEMP 98.5
[2018-03-05 07:28] LABS: Glucose,Whole Blood 130 mg/dL (75-99)
[2018-03-05] MEDS ORDERED: MIDAZOLAM 2 MG/2 ML VIAL ONE (07:38)
[2018-03-05] MEDS ORDERED: PROPOFOL 10 MG/ML 20 ML VIAL IV ONE (07:38)
--- NOTE | 2018-03-05 07:55 | P.PCN ---
Date of Procedure: 03/05/18 Procedure(s) Performed: BRIEF HISTORY: Patient is a 52-year-old pleasant white female, scheduled for an elective colonoscopy as a part of evaluation of lower abdominal pain as well as a chronic diarrhea for the last 5-6 months duration. She has bowel movements anywhere from 5-6 a day which are loose to watery in consistency and occasionally up to 10 times a day. Pain is mostly in the right side of the abdomen a patient in the left side. In view of the symptoms she is scheduled for colonoscopy to evaluate further. PROCEDURE PERFORMED: Colonoscopy with random biopsies PREOPERATIVE DIAGNOSIS: Abdominal pain and chronic diarrhea. IV sedation per Anesthesia. PROCEDURE: After informed consent was obtained, the patient, was brought into the endoscopy unit. IV sedation was administered by Anesthesia under continuous monitoring. Digital rectal examination was normal. Initially the Olympus CF- 160 flexible video colonoscope was then inserted in the rectum, gradually advanced into the cecum without any difficulty. Careful examination was performed as the scope was gradually being withdrawn. Ileocecal valve and the appendiceal orifice were visualized and appeared normal. Prep was excellent. Mucosa of the cecum, ascending colon, transverse colon, descending colon, sigmoid colon, and rectum appeared normal random biopsies were done from the ascending and descending colon to rule out microscopic/collagenous colitis. Retroflexion was performed in the rectum and no lesions were seen. The patient tolerated the procedure well. IMPRESSION: Normal-appearing colon from rectum to cecum with no evidence of colitis or colorectal neoplasia. RECOMMENDATIONS: Findings of this examination were discussed with the patient well as her family. She was advised to follow with the biopsy results. In the mid and she'll continue dicyclomine 10 mg 3 times daily and she'll be seen in the office in 4-6 weeks.
[2018-03-05 08:13] VITALS: BP 122/81; PULSE 85; RESP 16
[2018-03-05] MEDS ORDERED: ACETAMINOPHEN TAB 500 MG TAB PO ONE (08:19)
== END 2018-03-05 08:49 | disposition home or self-care (01) ==
LOC: ORWHC2ENDO 06:50
PROVIDERS: ATTEND Internal Medicine Gastroenterology
DX: R10.30 Lower abdominal pain, unspecified (principal); K52.9 Noninfective gastroenteritis and colitis, unspecified; E11.9 Type 2 diabetes mellitus without complications; M06.9 Rheumatoid arthritis, unspecified; N20.0 Calculus of kidney; Z79.899 Other long term (current) drug therapy; Z79.84 Long term (current) use of oral hypoglycemic drugs; Z79.1 Long term (current) use of non-steroidal anti-inflammatories (NSAID); Z79.891 Long term (current) use of opiate analgesic; Z79.52 Long term (current) use of systemic steroids; Z88.8 Allergy status to other drugs, medicaments and biological substances
CPT/HCPCS: 88305; 45380; J2250; J2704

== ENCOUNTER → 2022-08-21 | Outpatient (CLI) | payer OTHER ==
--- NOTE | 2022-08-21 11:38 | XR ---
EXAMINATION TYPE: XR shoulder limited LT DATE OF EXAM: 08/21/2022 CLINICAL HISTORY: pain COMPARISON: NONE TECHNIQUE: Three views of the left shoulder are obtained. FINDINGS: There is no acute fracture/dislocation evident. The acromioclavicular and glenohumeral alice int spaces appear within normal limits. The visualized ribs are intact and unremarkable. IMPRESSION: 1. There is no acute fracture or dislocation. ICD 10 NO FRACTURE, INITIAL EVALUATION
--- NOTE | 2022-08-21 11:39 | XR ---
EXAMINATION TYPE: XR knee limited LT DATE OF EXAM: 08/21/2022 CLINICAL HISTORY: pain TECHNIQUE: Three views of the left knee are obtained. COMPARISON: None. FINDINGS: There is no acute fracture/dislocation. Moderate degenerative narrowing medial tibiofemora l joint space. Mild intracondylar spur formation. The overlying soft tissue appears unremarkable. IMPRESSION: There is no acute fracture or dislocation ICD 10 NO FRACTURE, INITIAL EVALUATION
== END | disposition home or self-care (01) ==
LOC: RADXRMAIN 10:42
PROVIDERS: ATTEND Family Medicine
DX: M25.562 Pain in left knee (principal); M25.512 Pain in left shoulder